=== PATIENT | female | born 1945 | race Caucasian/White ===

== ENCOUNTER 2016-11-21 18:45 | Inpatient (IN) | payer MEDICARE, MEDICAID ==
[2016-11-21 18:55] VITALS: BP 190/98
[2016-11-21] MEDS ORDERED: Albuterol Nebulizer 2.5mg/3mL HHN PRN (20:14)
[2016-11-21] MEDS ORDERED: Magnesium Hydroxide (MOM) 30 mL UDC PO PRN (20:14)
[2016-11-21] MEDS ORDERED: MELATONIN 3 MG PO SCH (21:00)
[2016-11-21] MEDS ORDERED: Lactulose 10 Gm/15 mL 30mL UDC PO PRN (21:00)
[2016-11-21] MEDS: INSULIN ASPART SLIDING SCALE 100 UNITS/ML UNIT SUBQ SCH (21:30)
[2016-11-22] MEDS: Albuterol Nebulizer 2.5mg/3mL HHN PRN (00:09)
[2016-11-22] MEDS: Ipratropium Neb 0.5 mg/2.5 mL UD HHN PRN (00:09)
[2016-11-22] MEDS ORDERED: Albuterol/Ipratropium Neb 3 ML AERS HHN SCH (07:00)
[2016-11-22] MEDS: Albuterol/Ipratropium Neb 3 ML AERS HHN SCH ×4 (07:41→19:27)
[2016-11-22] MEDS: INSULIN ASPART SLIDING SCALE 100 UNITS/ML UNIT SUBQ SCH ×4 (07:52→20:30)
[2016-11-22] MEDS ORDERED: FORMOTEROL INH SCH (09:00)
[2016-11-22] MEDS ORDERED: MOMETASONE INH SCH (09:00)
[2016-11-22] MEDS: Aspirin 81mg Chewable Tab PO SCH (10:00)
[2016-11-22] MEDS: Nicotine 14 mg/24 hr Tdm TD SCH (10:00)
[2016-11-22] MEDS: Chlorhexidine Gluconate 0.12% 480mL Bottle MM SCH ×2 (10:00→17:46)
[2016-11-22] MEDS: Atorvastatin Calcium 10 MG TAB PO SCH (10:00)
--- NOTE | 2016-11-22 22:21 | History & Physical ---
ADMIT DATE: 11/22/2016 CHIEF COMPLAINT: Shortness of breath. HISTORY OF PRESENT ILLNESS: The patient is a 71-year-old female who has past history of tobacco abuse, alcoholism, hypertension, diabetes, coronary artery disease, stroke, COPD. ALLERGIES: PENICILLIN. PAST MEDICAL HISTORY: Tobacco abuse, alcohol use, CVA, diabetes mellitus, coronary artery disease, and COPD. PAST SURGICAL HISTORY: Left carotid thromboendarterectomy. SOCIAL HISTORY: Positive tobacco abuse. Denies alcohol use. Denies IV drug use. PHYSICAL EXAMINATION: GENERAL: Awake, NAD. VITAL SIGNS: On admission; pulse 84, respiratory rate 18, blood pressure 190/98, and O2 sat is 94% on oxygen nasal cannula. HEENT: Normocephalic and atraumatic. Extraocular movements intact. Oropharynx clear. NECK: Supple. No thyromegaly. No lymphadenopathy. RESPIRATORY: Diminished breath sounds. HEART: S1 and S2. No murmurs, rubs, or gallops. GASTROINTESTINAL: Soft. +BS. GENITOURINARY: No CVA tenderness. No significant suprapubic tenderness. BACK: No midline tenderness. EXTREMITIES: Equal pulses bilaterally. PSYCHIATRIC: Negative. SKIN: Negative. NEUROLOGIC: Cranial nerves intact. Extraocular movements are intact. Sensation is intact. Neurovascular intact. Bilateral gross normal muscles. LABORATORY DATA: Glucose 131. IMPRESSION: 1. Chronic obstructive pulmonary disease exacerbation, history of tobacco abuse. 2. Respiratory failure (chronic). 3. History of cerebrovascular accident status post carotid endarterectomy. 4. Coronary artery disease. 5. History of myocardial infarction. 6. Hypertension. 7. Diabetes mellitus. 8. Dysphagia. 9. Alcohol use. 10. Acute psychosis. PLAN: The patient is admitted to Psych Unit at [facility]. Obtain further labs consultation. JOB# [id number] DAVIN
[2016-11-23] MEDS: Albuterol/Ipratropium Neb 3 ML AERS HHN SCH ×4 (06:44→19:22)
[2016-11-23] MEDS: INSULIN ASPART SLIDING SCALE 100 UNITS/ML UNIT SUBQ SCH ×4 (06:54→21:26)
[2016-11-23] MEDS: Aspirin 81mg Chewable Tab PO SCH (09:25)
[2016-11-23] MEDS: Chlorhexidine Gluconate 0.12% 480mL Bottle MM SCH ×2 (09:26→17:13)
[2016-11-23] MEDS: Atorvastatin Calcium 10 MG TAB PO SCH (09:26)
[2016-11-23] MEDS: Nicotine 14 mg/24 hr Tdm TD SCH (09:36)
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
--- NOTE | 2016-11-24 04:21 | Progress Notes ---
DATE: 11/23/2016 SUBJECTIVE: The patient is awake and alert. The patient is still in Geropsych unit. The patient is on oxygen nasal cannula. OBJECTIVE: VITAL SIGNS: Temperature 98.1, pulse 71, blood pressure per nursing, respiratory rate 18, and O2 sat 94/% on oxygen nasal cannula. CARDIOVASCULAR: S1 and S2. RESPIRATORY: A few rales. GASTROINTESTINAL: Soft. Positive bowel sounds. LABORATORY DATA: Glucose 114. MRSA screening from 11/21/2016 is positive. ASSESSMENT: 1. MRSA colonization. 2. Chronic obstructive pulmonary disease. 3. History of tobacco abuse. 4. Respiratory failure (chronic). 5. History of cerebrovascular accident. 6. Status post carotid endarterectomy. 7. Coronary artery disease. 8. History of myocardial infarction. 9. Hypertension. 10. Diabetes mellitus. 11. Dysphagia. 12. Alcohol use. 13. Acute psychosis. PLAN: Continue current medication and treatment. Obtain labs in a.m. The patient is already on Bactroban for MRSA in nares. Awaiting Cardiology consultation. Further recommendations per Psychiatry. JOB# [id number] [facility]
[2016-11-24] MEDS: INSULIN ASPART SLIDING SCALE 100 UNITS/ML UNIT SUBQ SCH ×4 (06:32→21:31)
[2016-11-24] MEDS: Albuterol/Ipratropium Neb 3 ML AERS HHN SCH ×4 (07:37→19:09)
[2016-11-24] MEDS: Nicotine 14 mg/24 hr Tdm TD SCH (08:13)
--- NOTE | 2016-11-24 08:29 | Progress Notes ---
DATE: 11/23/2016 PSYCHIATRIC PROGRESS NOTE TIME PATIENT SEEN: 10:45 a.m. SUBJECTIVE: Staff was spoken to. The patient is interviewed. Mood is noted to be depressed. Affect is constricted. The patient is getting easily frustrated. The patient has no place to return to. Coping skills at this time are noted to be very poor. The skilled nursing case manager has been requested to look for placement for this patient. No aggressive behavior is noted today. ASSESSMENT: The patient is still depressed. PLAN: To continue the patient with the supportive therapy. I encouraged the patient to verbalize the concerns rather than to act out. JOB# [id number]
[2016-11-24] MEDS: Chlorhexidine Gluconate 0.12% 480mL Bottle MM SCH ×2 (09:50→17:11)
[2016-11-24] MEDS: Atorvastatin Calcium 10 MG TAB PO SCH (09:53)
[2016-11-24] MEDS: Aspirin 81mg Chewable Tab PO SCH (09:53)
--- NOTE | 2016-11-24 22:47 | Progress Notes ---
DATE: 11/24/2016 PSYCHIATRIC PROGRESS NOTE TIME PATIENT SEEN: 11:15 a.m. SUBJECTIVE: Staff was spoken to. The patient is interviewed. Mood is noted to be irritable. Affect is constricted. Coping skills are noted to be poor. Sleep and appetite are noted to be poor. The patient is stating that she does not know where she is going to be living when she leaves from here. The patient is currently on haloperidol on a p.r.n. dose, and the patient is on prednisone 40 mg daily for her COPD. Coping skills are noted to be still poor. The patient has been able to participate in the groups and verbalize the concerns, but the patient is feeling frustrated that she does not have a place to return to. The patient is stating that she was on several different medications, but she would rather not be on any at this time. ASSESSMENT: The patient is still depressed. PLAN: To continue the patient with supportive therapy and followup. [facility]# [id number]
[2016-11-25] MEDS: INSULIN ASPART SLIDING SCALE 100 UNITS/ML UNIT SUBQ SCH ×3 (06:46→21:12)
[2016-11-25] MEDS: Albuterol/Ipratropium Neb 3 ML AERS HHN SCH ×4 (06:59→19:28)
[2016-11-25] MEDS: Chlorhexidine Gluconate 0.12% 480mL Bottle MM SCH ×2 (16:08→16:11)
[2016-11-25] MEDS: Aspirin 81mg Chewable Tab PO SCH (16:08)
[2016-11-25] MEDS: Atorvastatin Calcium 10 MG TAB PO SCH (16:08)
[2016-11-25] MEDS: Nicotine 14 mg/24 hr Tdm TD SCH (16:09)
--- NOTE | 2016-11-25 22:43 | Progress Notes ---
DATE: 11/24/2016 SUBJECTIVE: The patient still is in Geropsyche Unit. Per psychiatry the patient is still depressed. OBJECTIVE: VITAL SIGNS: Temperature 97.9, pulse 85, blood pressure 142/76, respiratory 18 and O2 saturation 100% on oxygen nasal cannula. CARDIOVASCULAR: S1 and S2. RESPIRATORY: Few rales. GASTROINTESTINAL: Soft. Positive bowel sounds. LABORATORY DATA: No labs today. ASSESSMENT: 1. methicillin-resistant Staphylococcus aureus colonization and chronic obstructive pulmonary disease. 2. Tobacco abuse. 3. Respiratory failure, chronic. 4. History of cerebrovascular accident, status post carotid endarterectomy. 5. Coronary artery disease. 6. History of myocardial infarction. 7. Hypertension. 8. Diabetes mellitus. 9. This patient has alcohol use. 10. Acute psychosis and has depression. PLAN: Continue current medications. Further per consultation. Thank you very much. JOB# [id number] MTDD
--- NOTE | 2016-11-26 00:02 | Progress Notes ---
DATE: 11/25/2016 SUBJECTIVE: The patient is awake and alert. The patient is in Geropsyche Unit. The patient still per psychiatry is depressed. OBJECTIVE: VITAL SIGNS: Temperature 97.8, pulse 73, blood pressure 160/80, respiratory rate 20 and pulse ox on oxygen nasal cannula. CARDIOVASCULAR: S1 and S2. RESPIRATORY: Few rales. GASTROINTESTINAL: Soft. Positive bowel sounds. LABORATORY DATA: No labs for today. ASSESSMENT: 1. Methicillin-resistant Staphylococcus aureus colonization. 2. Respiratory failure (chronic) 3. Chronic obstructive pulmonary disease. 4. Tobacco abuse. 5. History of cerebrovascular accident status post carotid endarterectomy. 6. Coronary artery disease. 7. History of myocardial infarction. 8. Hypertension. 9. Diabetes mellitus. 10. The patient has alcohol use. 11. Acute psychosis. 12. Depression. PLAN: Continue current medications. Obtain labs in a.m. Further recommendations per consults. Thank you very much. JOB# [id number] MTDD
--- NOTE | 2016-11-26 02:40 | Progress Notes ---
DATE: 11/25/2016 TIME PATIENT SEEN: 10:30 a.m. SUBJECTIVE: Staff was spoken to. The patient is interviewed. Mood is noted to be irritable. Affect is constricted. The patient is feeling frustrated, states that she has been feeling depressed because she has no place to return to. The patient is reported to be getting easily irritable and angry. The patient has been on oxygen, but still she wants to smoke whenever she has been advised to not to do so. The patient has been getting out of control. ASSESSMENT: The patient is still impulsive. PLAN: To continue the patient with the supportive therapy and await for placement. JOB# [id number]
[2016-11-26] MEDS: Albuterol/Ipratropium Neb 3 ML AERS HHN SCH ×4 (06:24→19:54)
[2016-11-26] MEDS: INSULIN ASPART SLIDING SCALE 100 UNITS/ML UNIT SUBQ SCH ×5 (06:53→20:48)
[2016-11-26] MEDS: Chlorhexidine Gluconate 0.12% 480mL Bottle MM SCH ×2 (09:08→17:08)
[2016-11-26] MEDS: Aspirin 81mg Chewable Tab PO SCH (09:09)
[2016-11-26] MEDS: Atorvastatin Calcium 10 MG TAB PO SCH (09:09)
[2016-11-26] MEDS: Nicotine 14 mg/24 hr Tdm TD SCH (16:10)
[2016-11-27] MEDS: INSULIN ASPART SLIDING SCALE 100 UNITS/ML UNIT SUBQ SCH ×4 (06:50→20:54)
[2016-11-27] MEDS: Albuterol/Ipratropium Neb 3 ML AERS HHN SCH ×4 (07:58→19:30)
--- NOTE | 2016-11-27 08:51 | Progress Notes ---
DATE: 11/26/2016 PSYCHIATRIC PROGRESS NOTE TIME PATIENT SEEN: 10:00 a.m. SUBJECTIVE: Staff was spoken to. The patient is interviewed. Mood is noted to be irritable. Affect is constricted. Insight and judgment are noted to be very much impaired. The patient is testing the limits. The patient has no patience at all and has been demanding everything to be done as of yesterday. manager background has been having difficult time to look for placement for this patient and the patient is not providing any information with regards her family and she is also reluctant to take any antidepressant medications stating that she was on several different medications, nothing has helped. ASSESSMENT: The patient is still gravely disabled. Work with the patient and the leather case finisher in finding placement. JOB# [id number]
[2016-11-27] MEDS: Aspirin 81mg Chewable Tab PO SCH (09:06)
[2016-11-27] MEDS: Atorvastatin Calcium 10 MG TAB PO SCH (09:06)
[2016-11-27] MEDS: Chlorhexidine Gluconate 0.12% 480mL Bottle MM SCH ×2 (09:06→17:04)
[2016-11-27] MEDS: Nicotine 14 mg/24 hr Tdm TD SCH (09:08)
[2016-11-27] MEDS ORDERED: Haloperidol Lactate 5 mg/mL 1mL Vial IM STA (15:05)
[2016-11-27] MEDS ORDERED: Haloperidol Lactate 5 mg/mL 1mL Vial ONE (15:09)
[2016-11-27] MEDS ORDERED: Haloperidol Lactate 5 mg/mL 1mL Vial IM PRN (18:49)
[2016-11-28] MEDS: Albuterol Nebulizer 2.5mg/3mL HHN PRN (05:56)
[2016-11-28] MEDS: INSULIN ASPART SLIDING SCALE 100 UNITS/ML UNIT SUBQ SCH ×4 (06:47→20:44)
[2016-11-28] MEDS: Albuterol/Ipratropium Neb 3 ML AERS HHN SCH ×4 (07:22→19:59)
[2016-11-28] MEDS: Aspirin 81mg Chewable Tab PO SCH ×2 (08:36→08:41)
[2016-11-28] MEDS: Atorvastatin Calcium 10 MG TAB PO SCH ×2 (08:36→08:41)
[2016-11-28] MEDS: Nicotine 14 mg/24 hr Tdm TD SCH (08:41)
[2016-11-28] MEDS: Chlorhexidine Gluconate 0.12% 480mL Bottle MM SCH ×2 (08:41→16:22)
--- NOTE | 2016-11-28 19:23 | Progress Notes ---
DATE: 11/27/2016 PSYCHIATRIC PROGRESS NOTE TIME PATIENT SEEN: 5:15 a.m. SUBJECTIVE: Staff was spoken to. The patient is interviewed. Mood is noted to be irritable. Affect is constricted. Insight and judgment at this time are noted to be very much impaired. Impulse control seems to be poor. The patient has been screaming and yelling. The patient needs to be redirected. The patient has been ordered to take the Zyprexa 2.5 mg in view of her paranoia and aggressive behavior. The patient is going to be maintained on Haldol on a p.r.n. basis. The patient is going to be closely monitored and work with the disease case manager rn with regards to placement. JOB# [id number]
--- NOTE | 2016-11-28 20:44 | Progress Notes ---
DATE: 11/27/2016 SUBJECTIVE: The patient still is in Psyche Unit. The patient is depressed. OBJECTIVE: VITAL SIGNS: per nursing. CARDIOVASCULAR: S1, S2. RESPIRATORY: Clear. GASTROINTESTINAL: Soft. Positive bowel sounds. LABORATORY DATA: No labs today. ASSESSMENT: 1. Methicillin-resistant staphylococcus aureus colonization. 2. Respiratory failure, chronic. 3. Chronic obstructive pulmonary disease. 4. Tobacco abuse. 5. History of cerebrovascular accident, status post carotid endarterectomy. 6. Coronary artery disease. 7. History of myocardial infarction. 8. Hypertension. 9. Diabetes mellitus. 10. Acute psychosis and depression. PLAN: Continue current medications and treatment. Obtain labs. Further recommendations per consult. Thank you very much. JOB# [id number] MTDD
--- NOTE | 2016-11-28 20:47 | Progress Notes ---
DATE: 11/27/2016 SUBJECTIVE: The patient is awake, alert. The patient is on oxygen. The patient is in Psyche Unit. OBJECTIVE: VITAL SIGNS: Seen. CARDIOVASCULAR: S1, S2. RESPIRATORY: Clear. GASTROINTESTINAL: Soft, positive bowel sounds. ASSESSMENT: 1. Methicillin resistant staphylococcus aureus colonization. 2. Respiratory failure, chronic. 3. Chronic obstructive pulmonary disease. 4. Tobacco abuse. 5. History of cerebrovascular accident status post carotid endarterectomy. 6. Coronary artery disease. 7. History of myocardial infarction. 8. Hypertension. 9. Diabetes mellitus. 10. History of psychosis. PLAN: Continue current medication and treatment. Obtain labs in a.m. Further recommendations per consult. Thank you very much. JOB# [id number] MTDElvia
--- NOTE | 2016-11-29 01:34 | Progress Notes ---
DATE: 11/28/2016 SUBJECTIVE: The patient is still in Geropsyche Unit. Per psychiatry, the patient is still depressed. OBJECTIVE: VITAL SIGNS: Temperature 97.6, pulse 97, blood pressure 154/86, respirations 20, O2 saturation is 93% on oxygen via nasal cannula. CARDIOVASCULAR: S1 and S2. RESPIRATORY: Clear. GASTROINTESTINAL: Soft. Positive bowel sounds. LABORATORY DATA: No new labs for today. ASSESSMENT: 1. Methicillin-resistant Staphylococcus aureus colonization. 2. Respiratory failure, chronic. 3. Chronic obstructive pulmonary disease. 4. History of tobacco abuse. 5. History of cerebrovascular accident. 6. Coronary artery disease. 7. History of myocardial infarction. 8. Diabetes mellitus. 9. Alcohol abuse. 10. Acute psychosis. 11. Depression (severe). PLAN: Continue current medications. Per psychiatry, the patient will require placement. manager java was arranged for placement. Thank you very much. JOB# [id number] MTDD
[2016-11-29] MEDS: Albuterol Nebulizer 2.5mg/3mL HHN PRN (04:56)
--- NOTE | 2016-11-29 06:03 | Progress Notes ---
DATE: 11/28/2016 TIME PATIENT SEEN: 1:30 p.m. SUBJECTIVE: Staff was spoken to. The patient is interviewed. Mood is noted to be irritable. Affect is constricted. The patient is stating that no one likes her and everyone is against her. Paranoid delusions are noted. The patient is stating that the medications she has taken last night that is the Zyprexa, was able to help her to relax a little bit. No major behavioral problems are reported today. ASSESSMENT: The patient is still paranoid, awaiting placement. PLAN: To continue the patient with the supportive therapy and follow up. JOB# [id number]
[2016-11-29] MEDS: INSULIN ASPART SLIDING SCALE 100 UNITS/ML UNIT SUBQ SCH ×4 (06:42→21:00)
[2016-11-29] MEDS: Albuterol/Ipratropium Neb 3 ML AERS HHN SCH ×4 (07:27→20:17)
[2016-11-29] MEDS: Atorvastatin Calcium 10 MG TAB PO SCH (08:34)
[2016-11-29] MEDS: Chlorhexidine Gluconate 0.12% 480mL Bottle MM SCH ×2 (08:35→16:56)
[2016-11-29] MEDS: Aspirin 81mg Chewable Tab PO SCH (08:35)
[2016-11-29] MEDS: Nicotine 14 mg/24 hr Tdm TD SCH (08:38)
[2016-11-30] MEDS: Albuterol/Ipratropium Neb 3 ML AERS HHN SCH ×5 (03:34→19:00)
--- NOTE | 2016-11-30 03:44 | Progress Notes ---
DATE: 11/29/2016 PSYCHIATRIC PROGRESS NOTE TIME PATIENT SEEN: 10:00 a.m. SUBJECTIVE: Staff was spoken to. The patient is interviewed. Mood is noted to be irritable. Affect is constricted. The patient has no placement at all. The patient's director case management has been trying to send the patient ____. The patient is getting easily agitated and screaming and has been threatening to bite herself. ASSESSMENT: The patient is still impulsive. PLAN: To continue the patient with the current medications and follow up with the supportive therapy. JOB# [id number]
[2016-11-30] MEDS: INSULIN ASPART SLIDING SCALE 100 UNITS/ML UNIT SUBQ SCH ×4 (06:53→21:01)
[2016-11-30] MEDS: Atorvastatin Calcium 10 MG TAB PO SCH (08:08)
[2016-11-30] MEDS: Aspirin 81mg Chewable Tab PO SCH (08:09)
[2016-11-30] MEDS: Nicotine 14 mg/24 hr Tdm TD SCH (10:03)
[2016-11-30] MEDS: Chlorhexidine Gluconate 0.12% 480mL Bottle MM SCH ×2 (10:13→17:28)
[2016-11-30] MEDS ORDERED: Haloperidol Lactate 5 mg/mL 1mL Vial IM ONE (10:38)
[2016-11-30 16:34] LABS: HEMATOCRIT 36.8 % (35.0-45.0); HEMOGLOBIN 12.3 gm/dL (11.7-16.1); MEAN CELL VOLUME 90.8 fl (81-100); MEAN CORPUSCULAR HEMOGLOBIN 30.3 pg (27.0-31.0); MEAN CORPUSCULAR HGB CONC 33.4 pg (28.0-36.0); MEAN PLATELET VOLUME 9.9 fl; PLATELET COUNT 170 Th/cmm (150-400); RED BLOOD COUNT 4.06 Mil/cmm (3.80-5.20); RED CELL DISTRIBUTION WIDTH 15.3 % (11.5-20.0); WHITE BLOOD COUNT 11.6 Th/cmm (4.8-10.8)
[2016-11-30 16:49] LABS: ANION GAP 12.1 (7.0-16.0); BUN - UREA NITROGEN 33 mg/dL (7-25); BUN/CREATININE RATIO 36.7; CALCIUM SERUM 9.4 mg/dL (8.6-10.3); CARBON DIOXIDE 24.3 mEq/L (21.0-31.0); CHLORIDE 103 mEq/L (98-107); CREATININE - SERUM 0.9 mg/dL (0.6-1.2); GLUCOSE 242 mg/dL (70-105); POTASSIUM SERUM 4.4 mEq/L (3.5-5.1); SODIUM SERUM 135 mEq/L (136-145)
[2016-11-30 17:52] LABS: BAND NEUTROPHILE 3 % (0-10); BASOPHIL 0 % (0-3); EOSINOPHIL 0 % (0-5); NEUTROPHILS 88 % (40-80); PLATELET ESTIMATE ADEQUATE (NORMAL); PLATELET MORPHOLOGY NORMAL (NORMAL); TOTAL CELLS COUNTED 100
--- NOTE | 2016-11-30 18:21 | Progress Notes ---
DATE: 11/29/2016 SUBJECTIVE: The patient is still in Geropsych Unit. The patient is on oxygen nasal cannula. OBJECTIVE: VITAL SIGNS: Temperature 97.6, pulse 87, blood pressure 142/68, respirations 22, pulse oximetry 99% on 2 L nasal cannula. CARDIOVASCULAR: S1, S2. RESPIRATORY: Clear. GASTROINTESTINAL: Soft, positive bowel sounds. LABORATORY DATA: No labs today. ASSESSMENT: 1. Methicillin-resistant staphylococcus aureus colonization. 2. Respiratory failure (chronic). 3. Chronic obstructive pulmonary disease. 4. Tobacco abuse. 5. History of cerebrovascular accident. 6. Status post carotid endarterectomy. 7. Coronary artery disease. 8. History of myocardial infarction. 9. Hypertension. 10. Diabetes mellitus. 11. Acute psychosis. 12. Depression. PLAN: Continue medication, obtain labs in the a.m.. Further recommendations per consults. Thank you very much. JOB# [id number] MTDD
--- NOTE | 2016-12-01 02:09 | Progress Notes ---
DATE: 11/30/2016 SUBJECTIVE: The patient is still in Geropsych Unit. The patient is on oxygen nasal cannula. Per psychiatry, the patient is still impulsive. OBJECTIVE: VITAL SIGNS: Temperature 97.1, pulse per nursing, blood pressure 157/93, respirations 18, O2 sat 97% on 2 L nasal cannula. CARDIOVASCULAR: S1, S2. RESPIRATORY: Clear. GASTROINTESTINAL: Soft. Positive bowel sounds. LABORATORY DATA: No labs today. ASSESSMENT: 1. Methicillin resistant staphylococcus aureus colonization. 2. Respiratory failure (acute). 3. Chronic obstructive pulmonary disease. 4. Tobacco abuse. 5. Cerebrovascular accident. 6. Coronary artery disease. 7. History of myocardial infarction. 8. Diabetes mellitus. 9. Alcohol abuse. 10. Acute psychosis and depression. PLAN: Continue current medication. manager human resources for discharge planning. We will obtain labs on Saturday. Further recommendations per psychiatry. Thank you very much. JOB# [id number] MTDD
--- NOTE | 2016-12-01 02:32 | Progress Notes ---
DATE: 11/30/2016 TIME PATIENT SEEN: 10:00 a.m. SUBJECTIVE: Staff was spoken to. The patient is interviewed. Mood is noted to be irritable. Affect is constricted. Insight and judgment are noted to be very much impaired. The patient is screaming and yelling and has been cursing and has been showing a finger to the staff member. The patient has no insight into her illness. So far, no placement is available. technical manager has been trying to call different facilities to see if the patient can be accepted. ASSESSMENT: The patient is still impulsive. PLAN: To continue the patient with the current medications and the patient has to be given a dose of the Haldol and Benadryl to contain her aggressive and impulsive behavior. Plan to discharge the patient when placement is available. JOB# [id number]
[2016-12-01] MEDS: Albuterol/Ipratropium Neb 3 ML AERS HHN SCH ×4 (06:19→19:02)
[2016-12-01] MEDS: INSULIN ASPART SLIDING SCALE 100 UNITS/ML UNIT SUBQ SCH ×4 (06:37→21:02)
[2016-12-01] MEDS: Aspirin 81mg Chewable Tab PO SCH (08:13)
[2016-12-01] MEDS: Atorvastatin Calcium 10 MG TAB PO SCH (08:13)
[2016-12-01] MEDS: Chlorhexidine Gluconate 0.12% 480mL Bottle MM SCH ×2 (08:26→16:48)
[2016-12-01] MEDS: Nicotine 14 mg/24 hr Tdm TD SCH (08:28)
--- NOTE | 2016-12-02 01:15 | Progress Notes ---
DATE: 12/01/2016 PSYCHIATRIC PROGRESS NOTE TIME PATIENT SEEN: 10:00 a.m. SUBJECTIVE: Staff was spoken to. The patient is interviewed. Mood is noted to be irritable. Affect is constricted. Insight and judgment are noted to be very much impaired. Impulse control noted to be poor. The patient is screaming and yelling. The patient has to be given a dose of medication yesterday to contain her aggressive behavior. The outsole caser has been trying to look for placement for this patient, but so far no placement is available. The patient continues to be paranoid and aggressive towards the staff members and showing fingers and cursing them mouth. The patient has no insight into her illness. ASSESSMENT: The patient is grossly psychotic and impulsive. PLAN: To increase the dose on the Seroquel to 50 mg b.i.d. I encouraged the patient to verbalize the concerns rather than to act out. The patient is not able to be discharged because no placement has been available so far. The patient has no family support at this time. Since the patient has been also on Zyprexa, the dose of the Seroquel is going to be increased and the Zyprexa is going to be discontinued. JOB# [id number]
[2016-12-02] MEDS: INSULIN ASPART SLIDING SCALE 100 UNITS/ML UNIT SUBQ SCH ×4 (06:46→20:12)
[2016-12-02] MEDS: Albuterol/Ipratropium Neb 3 ML AERS HHN SCH ×4 (07:03→18:52)
[2016-12-02 08:34] LABS: MEAN CELL VOLUME 90.1 fl (81-100); MEAN CORPUSCULAR HEMOGLOBIN 30.6 pg (27.0-31.0); MEAN CORPUSCULAR HGB CONC 33.9 pg (28.0-36.0); MEAN PLATELET VOLUME 9.7 fl; PLATELET COUNT 211 Th/cmm (150-400); RED BLOOD COUNT 4.67 Mil/cmm (3.80-5.20)
[2016-12-02 08:44] LABS: ANION GAP 12.7 (7.0-16.0); BUN - UREA NITROGEN 41 mg/dL (7-25); CALCIUM SERUM 10.3 mg/dL (8.6-10.3); CARBON DIOXIDE 27.6 mEq/L (21.0-31.0); CHLORIDE 103 mEq/L (98-107); GLUCOSE 145 mg/dL (70-105); POTASSIUM SERUM 4.3 mEq/L (3.5-5.1); SODIUM SERUM 139 mEq/L (136-145)
[2016-12-02 08:48] LABS: WHITE BLOOD COUNT 23.3 Th/cmm (4.8-10.8)
[2016-12-02 08:49] LABS: HEMATOCRIT 42.1 % (35.0-45.0); HEMOGLOBIN 14.3 gm/dL (11.7-16.1)
--- NOTE | 2016-12-02 09:10 | Diagnostic Imaging Report ---
Portable chest x-ray History: Cough Allowing for portable technique the heart size is normal. Atherosclerotic calcification seen in the aortic arch. No focal pulmonary parenchymal processes. No hilar or mediastinal abnormalities. Impression: No acute abnormalities.
[2016-12-02] MEDS: Aspirin 81mg Chewable Tab PO SCH (09:45)
[2016-12-02] MEDS: Atorvastatin Calcium 10 MG TAB PO SCH (09:45)
[2016-12-02] MEDS: Chlorhexidine Gluconate 0.12% 480mL Bottle MM SCH ×2 (09:48→16:53)
[2016-12-02 11:54] LABS: BAND NEUTROPHILE 2 % (0-10); EOSINOPHIL 1 % (0-5); NEUTROPHILS 65 % (40-80); PLATELET ESTIMATE ADEQUATE (NORMAL); PLATELET MORPHOLOGY NORMAL (NORMAL); TOTAL CELLS COUNTED 100
--- NOTE | 2016-12-02 23:54 | Progress Notes ---
DATE: 12/01/2016 SUBJECTIVE: The patient is awake and alert. The patient is still in the Geropsych Unit. The patient is on oxygen via nasal cannula. The patient is receiving inpatient neb treatment. OBJECTIVE: VITAL SIGNS: Temperature 97.9, pulse 103, blood pressure is 184/89, respiratory rate 18, O2 saturation 95% on oxygenation. CARDIOVASCULAR: S1 and S2, tachycardic. RESPIRATORY: Rales. GASTROINTESTINAL: Soft, positive bowel sounds. LABORATORY DATA: The patient's labs from 11/30/2016, Hematology: WBC of 11.6, hemoglobin 12.3, hematocrit 36.8, platelet count 170, 88% neutrophils, 7% lymphocytes. Chemistry: Sodium 135, potassium 4.4, anion gap 12, BUN 33, creatinine 0.9. GFR is 160, glucose is 242, hemoglobin A1c is 5.6, calcium 9.4. MRSA screening from 11/21/2016 positive. ASSESSMENT: 1. MRSA colonization. 2. Leukocytosis. 3. Hypernatremia. 4. Azotemia. 5. Hyperglycemia. 6. Respiratory failure (chronic). 7. Chronic obstructive pulmonary disease. 8. History of tobacco abuse. 9. CVA. 10. Coronary artery disease. 11. History of myocardial infarction. 12. Diabetes mellitus. 13. Alcohol abuse. 14. Acute psychosis and depression. 15. Hypertension. PLAN: Continue current medication and treatment. We will obtain cultures regarding leukocytosis to rule out infection. We will obtain cardiac consultation regarding elevated blood pressure. Further consults. JOB# [id number] MTDD
[2016-12-02] MEDS: Albuterol Nebulizer 2.5mg/3mL HHN PRN (23:55)
--- NOTE | 2016-12-03 01:14 | Progress Notes ---
DATE: 12/02/2016 TIME PATIENT SEEN: ____ a.m. SUBJECTIVE: Staff was spoken to. The patient is interviewed. Mood is noted to be irritable. Affect is constricted. Insight and judgment are noted to be still impaired. The patient has been testing the limits. The patient has been in close monitoring, but the patient has still endangered behavioral problems. The patient is also noted to be having high white cell count and the chest x-ray and urinalysis has been ordered and white cell count has gone very high, is not very clear and since the patient is also having slightly elevated pulse rate and blood pressure, it is decided to hold the Haldol on a p.r.n. basis and possibly maintain the patient with Zyprexa and I encouraged the patient to verbalize the concerns rather than to act out. At this time, the patient is awaiting placement and as mentioned earlier, this is going to be workup that is going to be going on for increased white cell count and the patient is going to be monitored at this time. JOB# [id number]
[2016-12-03] MEDS: INSULIN ASPART SLIDING SCALE 100 UNITS/ML UNIT SUBQ SCH ×3 (06:44→21:23)
[2016-12-03] MEDS: Albuterol/Ipratropium Neb 3 ML AERS HHN SCH ×4 (07:15→21:00)
[2016-12-03] MEDS: Chlorhexidine Gluconate 0.12% 480mL Bottle MM SCH ×2 (09:28→18:55)
[2016-12-03] MEDS: Atorvastatin Calcium 10 MG TAB PO SCH (09:28)
[2016-12-03] MEDS: Aspirin 81mg Chewable Tab PO SCH (09:28)
--- NOTE | 2016-12-03 11:35 | Progress Notes ---
DATE: 12/02/2016 SUBJECTIVE: The patient is awake and alert. The patient is on room air. Per nursing staff, the patient still has elevated white count. OBJECTIVE: VITAL SIGNS: Temperature 98.3, pulse 98, blood pressure per nursing, respiratory 20, and O2 sat is 96% on room air. CARDIOVASCULAR: S1 and S2. RESPIRATORY: Clear. GASTROINTESTINAL: Soft. Positive bowel sounds. LABORATORY DATA: Hematology: WBC 23.3, hemoglobin 14.3, hematocrit per labs, and platelet count of 211. Chemistry: Sodium 139, potassium 4.3, chloride 103, bicarb 27, anion gap 12, BUN 41, creatinine 1.0. GFR is 50.4. Glucose of 145, calcium 10.3. MICROBIOLOGY: MRSA screen from November 21 is positive. Chest x-ray performed showed no acute abnormalities. ASSESSMENT: 1. MRSA colonization. 2. Leukocytosis. 3. Azotemia. 4. Hyperglycemia. 5. Psychotic disorder (grossly). 6. Impulse control disorder. 7. Chronic obstructive pulmonary disease. 8. Tobacco abuse. 9. Cerebrovascular accident. 10. Coronary artery disease. 11. Myocardial infarction. 12. Diabetes mellitus. 13. History of alcohol abuse. PLAN: Continue current treatment and medication. Obtain labs in a.m. Awaiting culture results. Further recommendation per consultation. We will obtain Hematology consultation regarding elevated WBC. JOB# [id number] MTDD
--- NOTE | 2016-12-03 14:34 | Consultation ---
DATE OF CONSULTATION: 12/03/2016 REFERRING PHYSICIAN: Dr. Velasquez and Dr. Higgins. REASON FOR REFERRAL: Elevated white count. HISTORY OF PRESENT ILLNESS: The patient is a 71-year-old female who was admitted on November 22 for management of acute psychosis and ____. Apparently, has been on prednisone 40 mg daily. She had elevated white count, therefore, I was asked to evaluate. PAST MEDICAL HISTORY: CVA, diabetes, coronary artery disease, ____, hypertension, diabetes. PAST SURGICAL HISTORY: Left carotid ____. SOCIAL HISTORY: Smoker. PHYSICAL EXAMINATION: GENERAL: She is awake, agitated and yelling. VITAL SIGNS: Stable. The patient refused exam. SKIN: There is no obvious bleeding on the skin, but multiple skin ecchymosis. LABORATORY DATA: White count 23.3, hemoglobin 14.3, platelets 211. Differential count is normal. Previous white count was 11,000. ASSESSMENT: Leukocytosis, likely reactive, likely to be myeloproliferative neoplasm, elevated leukocyte count secondary to steroids. I suggest tapering steroid down. No further intervention is required and monitored white count on tapering prednisone dose. Thank you for the opportunity to participate in the care of this interesting case. JOB# [id number]
--- NOTE | 2016-12-04 04:49 | Consultation ---
DATE OF CONSULTATION: 12/02/2016 CHIEF COMPLAINT: This is a 71-year-old female was brought to the hospital with shortness of breath. HISTORY OF PRESENT ILLNESS: The patient is known to have COPD and started having shortness of breath and she came to Emergency where the patient was evaluated and admitted to the hospital. The patient also became agitated and was put on GeroPsych Unit and seen by psychiatrist. The patient found to have MRSA nares____ positive as well as increased white blood cells 23,000. Infectious consultation was called, the patient is seen right away, antibiotics evaluated. PAST MEDICAL HISTORY: Diabetes, coronary artery disease, COPD, carotid endarterectomy. FAMILY HISTORY: Negative. SOCIAL HISTORY: The patient is an active smoker. REVIEW OF SYSTEMS: A 14-point review of system negative except above. ALLERGIES: ALLERGIC TO PENICILLIN. PHYSICAL EXAMINATION: GENERAL: The patient agitated, but reluctant to be examined. VITAL SIGNS: As follows, temperature 97.6, pulse 105, respiration 20, blood pressure 125/60. HEENT: Mild pallor, no icterus or plaque. NECK: Supple. No thyromegaly. LUNGS: Breath sounds vesicular, decreased all over. CARDIOVASCULAR: S1, S2. ABDOMEN: Soft, bowel sounds present. NODES: No thyroid or cervical lymph nodes. EXTREMITIES: Gait is normal. DIAGNOSTIC STUDIES: The patient's chest x-ray on December 02 shows clear lung gonzalez. LABORATORY DATA: White count is 23,000, hemoglobin is 14 g, platelets 211. MRSA ____ positive for MRSA ____nares. DIAGNOSES: 1. Methicillin resistant staphylococcus aureus colonization nares____ Bactroban or mupirocin. 2. Leukocytosis, decrease steroid. 3. Coronary artery disease, cardiology eval. 4. Hypertension, hydralazine. 5. Diabetes, insulin. PLAN: Rest of the care as ordered. Discussed with the staff. Thank you, Dr. Velasquez, for this consultation. JOB# [id number]
[2016-12-04] MEDS: Albuterol Nebulizer 2.5mg/3mL HHN PRN (05:12)
--- NOTE | 2016-12-04 05:56 | Progress Notes ---
DATE: 12/03/2016 PSYCHIATRIC PROGRESS NOTE TIME PATIENT SEEN: 10:00 a.m. SUBJECTIVE: Staff was spoken to. The patient is interviewed. Mood is noted to be depressed. Affect is constricted. The patient is stating that she has been getting infected because of the skin is very fragile. The patient's white cell count is noted to be very high. The patient, however, . The patient had a chest x-ray and it is reported to be within normal limits. The patient is awaiting placement. PLAN: To continue the patient with the supportive therapy. I encouraged the patient to verbalize the concerns rather than to act out. [facility]# [id number]
[2016-12-04] MEDS: INSULIN ASPART SLIDING SCALE 100 UNITS/ML UNIT SUBQ SCH ×3 (06:55→20:25)
[2016-12-04] MEDS: Albuterol/Ipratropium Neb 3 ML AERS HHN SCH ×4 (07:19→19:46)
[2016-12-04] MEDS: Aspirin 81mg Chewable Tab PO SCH (08:43)
[2016-12-04] MEDS: Atorvastatin Calcium 10 MG TAB PO SCH (08:43)
[2016-12-04] MEDS: Chlorhexidine Gluconate 0.12% 480mL Bottle MM SCH ×2 (08:44→16:28)
[2016-12-04 09:00] LABS: % BASOPHILS 0.9 % (0.0-2.0); % EOSINOPHILS 2.2 % (0.0-5.0); % LYMPHOCYTES 31.6 % (20.0-50.0); % MONOCYTES 7.4 % (2.0-10.0); % NEUTROPHILS 57.9 % (40.0-80.0); HEMATOCRIT 40.2 % (35.0-45.0); HEMOGLOBIN 13.4 gm/dL (11.7-16.1); MEAN CELL VOLUME 92.4 fl (81-100); MEAN CORPUSCULAR HEMOGLOBIN 30.7 pg (27.0-31.0); MEAN CORPUSCULAR HGB CONC 33.3 pg (28.0-36.0); NEUTROPHILE ABSOLUTE 9.3 Th/cmm (1.8-8.0); PLATELET COUNT 179 Th/cmm (150-400); RED BLOOD COUNT 4.35 Mil/cmm (3.80-5.20); RED CELL DISTRIBUTION WIDTH 14.8 % (11.5-20.0)
[2016-12-04 09:06] LABS: WHITE BLOOD COUNT 16.1 Th/cmm (4.8-10.8)
[2016-12-04 09:26] LABS: BUN - UREA NITROGEN 24 mg/dL (7-25); CALCIUM SERUM 9.2 mg/dL (8.6-10.3); CARBON DIOXIDE 30.2 mEq/L (21.0-31.0); CHLORIDE 102 mEq/L (98-107); CREATININE - SERUM 0.8 mg/dL (0.6-1.2); GLUCOSE 178 mg/dL (70-105); POTASSIUM SERUM 4.2 mEq/L (3.5-5.1); SODIUM SERUM 135 mEq/L (136-145)
--- NOTE | 2016-12-04 15:26 | Progress Notes ---
DATE: 12/03/2016 SUBJECTIVE: The patient is awake and alert. The patient is on oxygen nasal cannula. The patient received inpatient neb treatment. OBJECTIVE: VITAL SIGNS: Temperature is unknown, pulse 99, respiratory rate 20, 89% on oxygen nasal cannula. CARDIOVASCULAR: S1 and S2. RESPIRATORY: Few rales. GASTROINTESTINAL: Soft. Positive bowel sounds. LABORATORY DATA: No labs for today. ASSESSMENT: 1. MRSA colonization. 2. Leukocytosis. 3. Psychotic disorder 4. Impulse control disorder. 5. Chronic obstructive pulmonary disease. 6. Tobacco abuse. 7. Cerebrovascular accident. 8. Coronary artery disease. 9. History of myocardial infarction. 10. Diabetes mellitus. 11. History of alcohol abuse. PLAN: Continue current treatment and medication. Obtain labs in a.m. Further recommendation per consultation. JOB# [id number]
--- NOTE | 2016-12-04 18:28 | Infectious Disease Prog Note ---
Infectious Disease Subjective - Review of Systems Service Date: 12/04/16 Subjective: cc wbc high/mrsa hpi- cx noted wbc decreased 17k ros nio fevr o/e vss chest clear abd soft ext no edema Infectious Disease Objective - Results Result Diagrams: 12/04/16 08:20 12/04/16 08:20 Recent Labs: Laboratory Last Values WBC 16.1 Th/cmm (4.8-10.8) H D 12/04/16 08:20 RBC 4.35 Mil/cmm (3.80-5.20) 12/04/16 08:20 Hgb 13.4 gm/dL (11.7-16.1) 12/04/16 08:20 Hct 40.2 % (35.0-45.0) 12/04/16 08:20 MCV 92.4 fl (81-100) 12/04/16 08:20 MCH 30.7 pg (27.0-31.0) 12/04/16 08:20 MCHC Differential 33.3 pg (28.0-36.0) 12/04/16 08:20 RDW 14.8 % (11.5-20.0) 12/04/16 08:20 Plt Count 179 Th/cmm (150-400) 12/04/16 08:20 MPV 10.0 fl 12/04/16 08:20 Neutrophils % 57.9 % (40.0-80.0) 12/04/16 08:20 Band Neutrophils % 2 % (0-10) 12/02/16 08:07 Lymphocytes % 31.6 % (20.0-50.0) 12/04/16 08:20 Monocytes % 7.4 % (2.0-10.0) 12/04/16 08:20 Eosinophils % 2.2 % (0.0-5.0) 12/04/16 08:20 Basophils % 0.9 % (0.0-2.0) 12/04/16 08:20 Neutrophils (Manual) 65 % (40-80) 12/02/16 08:07 Lymphocytes 29 % (20-50) 12/02/16 08:07 Monocytes 3 % (2-10) 12/02/16 08:07 Eosinophils 1 % (0-5) 12/02/16 08:07 Basophils 0 % (0-3) 11/30/16 13:21 Platelet Estimate ADEQUATE (NORMAL) 12/02/16 08:07 Platelet Morphology NORMAL (NORMAL) 12/02/16 08:07 RBC Morph Micro Appear NORMAL (NORMAL) 12/02/16 08:07 ESR 1 mm/hr (0-30) 12/04/16 08:20 Sodium 135 mEq/L (136-145) L 12/04/16 08:20 Potassium 4.2 mEq/L (3.5-5.1) 12/04/16 08:20 Chloride 102 mEq/L (98-107) 12/04/16 08:20 Carbon Dioxide 30.2 mEq/L (21.0-31.0) 12/04/16 08:20 Anion Gap 7.0 (7.0-16.0) 12/04/16 08:20 BUN 24 mg/dL (7-25) 12/04/16 08:20 Creatinine 0.8 mg/dL (0.6-1.2) 12/04/16 08:20 Est GFR ( Amer) > 60.0 ml/min (>90) 12/04/16 08:20 Est GFR (Non-Af Amer) > 60.0 ml/min 12/04/16 08:20 BUN/Creatinine Ratio 30.0 12/04/16 08:20 Glucose 178 mg/dL (70-105) H 12/04/16 08:20 POC Glucose 198 MG/DL (70 - 105) H 12/04/16 17:04 Hemoglobin A1c % 5.6 % (4.0-6.0) 11/30/16 16:21 Calcium 9.2 mg/dL (8.6-10.3) 12/04/16 08:20 C-Reactive Protein < 0.2 mg/dL (0.0-0.9) 12/04/16 08:20 - Physical Exam Vitals and I&O: Vital Signs Temp 98.3 F 12/04/16 14:42 Pulse 92 12/04/16 15:27 Resp 20 12/04/16 15:27 BP 120/57 12/04/16 14:42 Pulse Ox 89 12/04/16 15:27 Intake & Output 12/03/16 12/04/16 12/04/16 18:59 06:59 18:59 Intake Total 889 417 7869 Balance 161 214 1932 Intake: Oral 192 503 5777 Other: # Voids 2 4 # Bowel Movements 1 Active Medications: Current Medications Acetaminophen (Tylenol) 650 mg PO Q6H PRN PRN Reason: Mild Pain/Headache/T above 101 Stop: 01/20/17 20:13 Last Admin: 11/29/16 03:27 Dose: 650 mg Albuterol Sulfate (Albuterol 2.5mg/3ml Neb Ud) 2.5 mg HHN Q4HRT PRN PRN Reason: Shortness of Breath Stop: 01/20/17 21:02 Last Admin: 12/04/16 05:12 Dose: 2.5 mg Albuterol/Ipratropium (Duoneb Neb) 3 ml HHN [id number] [facility] Stop: 01/20/17 23:19 Last Admin: 12/04/16 15:27 Dose: 3 ml Aspirin (Aspirin Chewable) 81 mg PO DAILY [facility] Stop: 01/21/17 08:59 Last Admin: 12/04/16 08:43 Dose: 81 mg Atorvastatin Calcium (Lipitor) 10 mg PO DAILY ERIC PRN Reason: Protocol Stop: 01/21/17 08:59 Last Admin: 12/04/16 08:43 Dose: 10 mg Bisacodyl (Dulcolax 10 Mg Supp) 10 mg RC DAILY PRN PRN Reason: Constipation Stop: 01/20/17 20:58 Chlorhexidine Gluconate (Peridex) 5 ml MM BID [facility] Stop: 01/21/17 08:59 Last Admin: 12/04/16 16:28 Dose: Not Given Diphenhydramine HCl (Benadryl 50 Mg/Ml) 25 mg IM Q6HR PRN PRN Reason: Agitation Stop: 01/26/17 18:48 Last Admin: 11/29/16 15:51 Dose: 25 mg Folic Acid (Folate) 1 mg PO DAILY ERIC Stop: 01/21/17 18:14 Last Admin: 12/04/16 08:43 Dose: 1 mg Hydralazine HCl (Apresoline) 10 mg PO Q4HR PRN PRN Reason: hypertension Stop: 01/20/17 20:59 Last Admin: 12/01/16 08:16 Dose: 10 mg Insulin Aspart (Novolog Insulin Sliding Scale) 0 units SUBQ ACHS ERIC PRN Reason: Protocol Stop: 01/20/17 20:59 Last Admin: 12/04/16 16:25 Dose: Not Given Ipratropium Alexander (Atrovent Neb 0.5mg/2.5ml) 0.5 mg HHN Q6HRT PRN PRN Reason: Shortness of Breath Stop: 01/20/17 20:13 Last Admin: 11/22/16 00:09 Dose: 0.5 mg Lactulose (Cephulac) 20 gm PO TID PRN PRN Reason: Constipation Stop: 01/20/17 20:59 Losartan Potassium (Cozaar) 25 mg PO DAILY ERIC Stop: 01/21/17 08:59 Last Admin: 12/04/16 08:44 Dose: 25 mg Magnesium Hydroxide (Milk Of Magnesia) 30 ml PO HS PRN PRN Reason: Constipation Stop: 01/20/17 20:13 Last Admin: 12/02/16 22:30 Dose: 30 ml Miscellaneous (Mometasone/Formoterol [Dulera 200 Mcg/5 Mcg Inhaler]) 2 puff INH BID [facility] Stop: 01/21/17 08:59 Mupirocin (Bactroban Oint) 1 appl NS BID [facility] Stop: 12/07/16 09:01 Last Admin: 12/04/16 16:28 Dose: Not Given Olanzapine (Zyprexa) 2.5 mg PO HS ERIC PRN Reason: Protocol Stop: 01/26/17 20:59 Last Admin: 12/03/16 20:30 Dose: 2.5 mg Ondansetron HCl (Zofran Odt) 4 mg PO Q6H PRN PRN Reason: Nausea / Vomiting Stop: 01/20/17 23:44 Last Admin: 12/02/16 23:22 Dose: 4 mg Prednisone (Deltasone) 10 mg PO DAILY [facility] Stop: 02/03/17 08:59 Quetiapine Fumarate (Seroquel) 50 mg PO BID ERIC PRN Reason: Protocol Stop: 01/29/17 16:59 Last Admin: 12/04/16 16:25 Dose: 50 mg Thiamine HCl (Vitamin B1) 100 mg PO DAILY [facility] Stop: 01/21/17 18:14 Last Admin: 12/04/16 08:43 Dose: 100 mg Nutritional Asmnt/Malnutr-PDOC - Dietary Evaluation Malnutrition Findings (Please click <Entered> for more info): Nutritional Asmnt/Malnutrition Start: 11/26/16 11: 44 Text: Status: Complete Freq: Document 11/26/16 11:45 JUDY (Rec: 11/26/16 12:02 JUDY [email or web address]) Nutritional Asmnt/Malnutrition Patient General Information Nutritional Screening Moderate Risk Screening Diagnosis Chronic COPD exacerbation, resp failure, psychotic disorder Pertinent Medical Hx/Surgical Hx Tobacco abuse, alcoholism, HTN , DM, CAD, CVA, COPD Subjective Information 71 year old female, homeless. Pleasant itnerview, however pt appeared to be a questionable historian. Pt responded yes to difficulty chewing, refused to have food chopped, then stated no difficulties chewing . Pt seen with oxygen, however later on seen without and ambulating quickly down the reich. Per nursing staff, no nutritional concerns. Avg PO intake 90% of meals, meeting nutritional needs. Unable to otbain CBW, bedscale malfunction. Current Diet Order/ Nutrition Support DORIS Pertinent Medications Lipitor, Folate, Haldol, Novolog, Cephulac, MOM, Zofran , Vitamin B1 Pertinent Labs POC glucose around consistent around 100 since adm, 3 episodes of hyperglycemia at 155, 204, 146. Nutritional Hx/Data Height 1.57 m Height (Calculated Centimeters) 157.5 Current Weight (lbs) 68.039 kg Weight (Calculated Kilograms) 68.0 Weight (Calculated Grams) 74570.9 [place] Body Weight 110 Weight Status Overweight GI Symptoms Food Allergies No Skin Integrity/Comment: Jaret 20. Skin intact. Current %PO Good (75-100%) Estimated Nutritional Goals Calories/Kcals/Kg IBW 110lb/50kg Kcals Calculated 1250-1500kcal (25-30kcal/kg) Protein g/kg: IBW Protein Calculated 50g (1g/kg) Fluid: ml 1250-1500ml (1ml/kcal) Nutritional Problem 1. Problem Problem Altered nutrition related laboratory values related to Etiology DM aeb Signs/Symptoms: H&P, elevated POC glucose, on DM medications Intervention/Recommendation Comments 1. Continue with regular DORIS diet. Avg PO intake is adequate. 2. Monitor glucose. POC glucose mainly WNL/stable. Recommend QPEI28up as needed. Expected Outcomes/Goals Expected Outcomes/Goals 1. PO intake continue to meet at least 75% of estimated nutritional needs.
--- NOTE | 2016-12-05 05:12 | Progress Notes ---
DATE: 12/04/2016 PSYCHIATRIC PROGRESS NOTE TIME PATIENT SEEN: 5:00 p.m. SUBJECTIVE: Staff was spoken to. The patient is interviewed. Mood is noted to be irritable. Affect is constricted. The patient's coping skills are noted to be poor. Sleep and appetite are also noted to be poor. The patient has been having difficult time to cope with the stress. The patient is screaming and yelling and stating that she needs to be discharged. The patient had the blood work done, the CBC, particularly the white cell count is coming down. ASSESSMENT: The patient's psychosis is resolving. The patient is awaiting placement. PLAN: To continue the patient with supportive therapy and followup. [facility]# [id number]
[2016-12-05] MEDS: Albuterol Nebulizer 2.5mg/3mL HHN PRN (05:31)
[2016-12-05] MEDS: INSULIN ASPART SLIDING SCALE 100 UNITS/ML UNIT SUBQ SCH ×4 (07:04→21:00)
[2016-12-05] MEDS: Albuterol/Ipratropium Neb 3 ML AERS HHN SCH ×4 (07:25→19:45)
--- NOTE | 2016-12-05 09:04 | Progress Notes ---
DATE: 12/04/2016 SUBJECTIVE: The patient is awake and alert. The patient is in no acute distress. The patient is on oxygen nasal cannula as needed. The patient is in Geropsych Unit. Per psychiatry, the patient continues to be depressed. The patient's affect is little constricted. OBJECTIVE: VITAL SIGNS: Temperature is 98, pulse 96, blood pressure 131/67, respiratory rate 20, and O2 sat is 98% on oxygen nasal cannula. CARDIOVASCULAR: S1 and S2. RESPIRATORY: Clear. GASTROINTESTINAL: Soft. Positive bowel sounds. LABORATORY DATA: Hematology: WBC 16.1, hemoglobin 13.4, hematocrit 40.2, platelet count 179. No left shift noted. Chemistry: Sodium 135, potassium 4.2, chloride 102, bicarb 30, anion gap 7, BUN 24, creatine 0.8, GFR is more than 60, glucose is 178, calcium 9.2. MICROBIOLOGY: MRSA screen from November 21 is positive. ASSESSMENT: 1. MRSA colonization. 2. Leukocytosis (reactive, secondary to steroids). 3. Hyponatremia. 4. Hyperglycemia (secondary to steroids). 4. Chronic obstructive pulmonary disease. 5. Tobacco abuse. 6. History of cerebrovascular accident. 7. Coronary artery disease. 8. History of myocardial infarction. 9. Diabetes mellitus. 10. History of alcohol abuse. PLAN: Continue current treatment and medication. Obtain labs in a.m. Further recommendations per consult. We will try to wean off steroids. JOB# [id number]
[2016-12-05 09:43] LABS: % BASOPHILS 0.6 % (0.0-2.0); % EOSINOPHILS 1.2 % (0.0-5.0); % MONOCYTES 5.4 % (2.0-10.0); % NEUTROPHILS 67.8 % (40.0-80.0); HEMATOCRIT 36.6 % (35.0-45.0); HEMOGLOBIN 12.4 gm/dL (11.7-16.1); MEAN CELL VOLUME 90.9 fl (81-100); MEAN CORPUSCULAR HEMOGLOBIN 30.8 pg (27.0-31.0); MEAN CORPUSCULAR HGB CONC 33.9 pg (28.0-36.0); NEUTROPHILE ABSOLUTE 13.2 Th/cmm (1.8-8.0); PLATELET COUNT 168 Th/cmm (150-400); RED BLOOD COUNT 4.03 Mil/cmm (3.80-5.20); RED CELL DISTRIBUTION WIDTH 14.9 % (11.5-20.0)
[2016-12-05 09:46] LABS: WHITE BLOOD COUNT 19.3 Th/cmm (4.8-10.8)
[2016-12-05 09:54] LABS: ANION GAP 9.1 (7.0-16.0); BUN - UREA NITROGEN 26 mg/dL (7-25); BUN/CREATININE RATIO 32.5; CALCIUM SERUM 9.3 mg/dL (8.6-10.3); CARBON DIOXIDE 28.8 mEq/L (21.0-31.0); CHLORIDE 105 mEq/L (98-107); CREATININE - SERUM 0.8 mg/dL (0.6-1.2); GLUCOSE 122 mg/dL (70-105); POTASSIUM SERUM 3.9 mEq/L (3.5-5.1); SODIUM SERUM 139 mEq/L (136-145)
[2016-12-05] MEDS: Chlorhexidine Gluconate 0.12% 480mL Bottle MM SCH ×2 (10:15→17:18)
[2016-12-05] MEDS: Atorvastatin Calcium 10 MG TAB PO SCH (10:16)
[2016-12-05] MEDS: Aspirin 81mg Chewable Tab PO SCH (10:18)
[2016-12-06] MEDS: Albuterol Nebulizer 2.5mg/3mL HHN PRN (01:25)
[2016-12-06] MEDS: Ipratropium Neb 0.5 mg/2.5 mL UD HHN PRN (01:25)
--- NOTE | 2016-12-06 01:57 | Progress Notes ---
DATE: 12/05/2016 SUBJECTIVE: The patient is awake and alert. The patient is still in Geropsych Unit. The patient is receiving inpatient neb treatment. OBJECTIVE: VITAL SIGNS: Temperature is 97.6, pulse 93, blood pressure 144/66, respiratory rate 18, and O2 sat is 98%. CARDIOVASCULAR: S1 and S2. RESPIRATORY: Clear. GASTROINTESTINAL: Soft. Positive bowel sounds. LABORATORY DATA: No labs today. ASSESSMENT: 1. MRSA colonization. 2. Leukocytosis (reactive, secondary to steroids). 3. Hyperglycemia (secondary to steroids). 4. Chronic obstructive pulmonary disease. 5. Tobacco abuse. 6. History of cerebrovascular accident. 7. Coronary artery disease. 8. History of myocardial infarction. 9. Diabetes mellitus. 10. History of alcohol abuse. 11. Acute psychosis. 12. Depression. PLAN: Continue current medication and treatment. Repeat labs. Further recommendations per consultation. [facility]# [id number]
--- NOTE | 2016-12-06 06:10 | Progress Notes ---
DATE: 12/05/2016 TIME PATIENT SEEN: 5 p.m. SUBJECTIVE: Staff was spoken to. The patient is interviewed. Mood is noted to be irritable. Affect is constricted. Coping skills are noted to be still poor. ____ The patient's white cell count is still going up today. No side effects to the medications are noted. The patient is awaiting placement. No major behavioral problems are noted today. ASSESSMENT: The patient is awaiting placement. PLAN: To continue the patient with the supportive therapy and follow up. [facility]# [id number]
[2016-12-06] MEDS: INSULIN ASPART SLIDING SCALE 100 UNITS/ML UNIT SUBQ SCH ×2 (06:38→13:19)
[2016-12-06] MEDS: Albuterol/Ipratropium Neb 3 ML AERS HHN SCH ×3 (07:43→13:44)
[2016-12-06 07:51] LABS: HEMOGLOBIN 12.7 gm/dL (11.7-16.1)
[2016-12-06 07:56] LABS: % BASOPHILS 2.2 % (0.0-2.0); % EOSINOPHILS 2.3 % (0.0-5.0); % LYMPHOCYTES 37.1 % (20.0-50.0); % MONOCYTES 7.8 % (2.0-10.0); % NEUTROPHILS 50.6 % (40.0-80.0); HEMATOCRIT 38.1 % (35.0-45.0); MEAN CELL VOLUME 92.6 fl (81-100); MEAN CORPUSCULAR HEMOGLOBIN 30.9 pg (27.0-31.0); MEAN CORPUSCULAR HGB CONC 33.4 pg (28.0-36.0); MEAN PLATELET VOLUME 9.4 fl; NEUTROPHILE ABSOLUTE 8.9 Th/cmm (1.8-8.0); PLATELET COUNT 180 Th/cmm (150-400); RED BLOOD COUNT 4.11 Mil/cmm (3.80-5.20); RED CELL DISTRIBUTION WIDTH 15.4 % (11.5-20.0)
[2016-12-06 08:00] LABS: WHITE BLOOD COUNT 17.6 Th/cmm (4.8-10.8)
[2016-12-06] MEDS: Atorvastatin Calcium 10 MG TAB PO SCH (09:56)
[2016-12-06] MEDS: Aspirin 81mg Chewable Tab PO SCH (09:57)
[2016-12-06] MEDS: Chlorhexidine Gluconate 0.12% 480mL Bottle MM SCH ×2 (09:59→16:09)
--- NOTE | 2016-12-06 22:57 | Progress Notes ---
DATE: 12/06/2016 TIME PATIENT SEEN: 09:00 a.m. SUBJECTIVE: Staff was spoken to. The patient is interviewed. Mood is noted to be irritable. Affect is constricted. Insight and judgment noted to be improving. Impulse control seemed to be fair. The patient is reporting that she was not able to sleep last night. Now, she is taking a nap and does not want to be bothered. No major behavioral problems are noted. The major concern at this time is placement and casey saw operator is working to help with the patient with the placement. JOB# [id number]
--- NOTE | 2016-12-07 01:57 | Progress Notes ---
DATE: 12/06/2016 SUBJECTIVE: The patient is still in Geropsych Unit. Per Psychiatry, the patient's mood is still irritable. The patient's affect is constricted. The patient is awaiting placement. The patient is receiving inpatient neb treatment. OBJECTIVE: VITAL SIGNS: Pulse of 98, blood pressure 158/77, respiratory rate 18, O2 sat is 98% on nasal cannula. CARDIOVASCULAR: S1 and S2. RESPIRATORY: Clear. GASTROINTESTINAL: Soft. Positive bowel sounds. LABORATORY DATA: Hematology: WBC 17.6, hemoglobin 12.7, hematocrit 38.1, and platelet count of 180,000. Basophils 2.2. Glucose 89. Microbiology: MRSA screen from 11/21/2016 is positive. Urine culture from 12/02/2016 shows mixed urogenital valorie. ASSESSMENT: 1. MRSA colonization. 2. Leukocytosis (improved). 3. Psychosis. 4. Depression. 5. Chronic obstructive pulmonary disease. 6. History of tobacco abuse. 7. History of cerebrovascular accident. 8. Coronary artery disease. 9. History of myocardial infarction. 10. Diabetes mellitus. 11. History of alcohol abuse. PLAN: Continue current medication and treatment. Continue weaning off steroids. Further recommendations per consult. group program manager for SNF placements. JOB# [id number] DAVIN
--- NOTE | 2016-12-13 01:04 | Discharge Summary ---
DATE OF DISCHARGE: 12/06/2016 DISCHARGE DIAGNOSES: 1. Methicillin-resistant Staphylococcus aureus colonization. 2. Leukocytosis (secondary to the steroids). 3. Psychosis. 4. Depression. 5. Chronic obstructive pulmonary disease. 6. History of tobacco abuse. 7. History of cerebrovascular accident. 8. Coronary artery disease. 9. History of myocardial infarction. 10. Diabetes mellitus. 11. History of alcohol abuse. HOSPITAL COURSE: The patient is a 71-year-old white female who was admitted to Geropsych Unit at [facility]. The patient was admitted with diagnoses of COPD, history of tobacco abuse, CVA, status post carotid endarterectomy, coronary artery disease, history of myocardial infarction, hypertension, diabetes mellitus, dysphagia, history of alcohol abuse and acute psychosis. The patient was admitted to Psychiatric Unit at [facility]. Psychiatry consultation obtained with Dr. Higgins. Psychiatric management was under the care of Dr. Higgins. During the hospital course, the patient developed elevated white count. ID consultation obtained for Infectious Disease from Dr. Lavell Chaudhari to rule out any infectious process. Hematology consultation obtained from Dr. Messina. the patient's leukocytosis was found secondary to steroids. The patient was weaned down on steroids. The patient upon discharge was weaned down to 10 mg b.i.d. Recommendations for this patient, taper off of steroids. Per Psychiatry, the patient was discharged home. JOB# [id number] MTDElvia
== END 2016-12-06 16:20 | DRG 885 ==
LOC: GERO 18:45
PROVIDERS: ADMIT Psychiatry & Neurology Psychiatry; ATTEND Psychiatry & Neurology Psychiatry
DX: F23 Brief psychotic disorder (principal); J96.10 Chronic respiratory failure, unspecified whether with hypoxia or hypercapnia; E87.1 Hypo-osmolality and hyponatremia; J44.1 Chronic obstructive pulmonary disease with (acute) exacerbation; R13.10 Dysphagia, unspecified; E11.65 Type 2 diabetes mellitus with hyperglycemia; F22 Delusional disorders; F32.9 Major depressive disorder, single episode, unspecified; I10 Essential (primary) hypertension; I25.10 Atherosclerotic heart disease of native coronary artery without angina pectoris; D72.829 Elevated white blood cell count, unspecified; T38.0X5A Adverse effect of glucocorticoids and synthetic analogues, initial encounter; F17.200 Nicotine dependence, unspecified, uncomplicated; F63.9 Impulse disorder, unspecified; Z86.73 Personal history of transient ischemic attack (TIA), and cerebral infarction without residual deficits; Z88.0 Allergy status to penicillin; I25.2 Old myocardial infarction; Z72.89 Other problems related to lifestyle; Z22.322 Carrier or suspected carrier of Methicillin resistant Staphylococcus aureus
CPT/HCPCS: 36415-UA; 71010-TC; 80048-TC; 82948-90; 83036-90; 85007-TC; 85025-TC; 85027-TC; 85652-TC; 86141-TC; 87075-90; 87086-90; 87205-90; 90779; 90899; 94640; 94760; G0410; J1200; J1630; J1644; J1815; J2060; J7613; Q0162; Z7610